=== PATIENT | female | born 1985 | race Caucasian/White ===

== ENCOUNTER → 2017-03-03 | Outpatient (CLI) | payer OTHER ==
[2017-03-03 12:20] LABS: BETA HCG QUANT 35664 MIU/ML (0-5)
== END ==
LOC: CLAB 11:17
PROVIDERS: ATTEND Obstetrics & Gynecology
DX: O26.21 Pregnancy care for patient with recurrent pregnancy loss, first trimester (principal)
CPT/HCPCS: 84144; 84702

== ENCOUNTER → 2017-05-05 | Outpatient (CLI) | payer OTHER | LOC: CLAB 10:07 | PROVIDERS: ATTEND Obstetrics & Gynecology | DX: O99.211 Obesity complicating pregnancy, first trimester (principal) | CPT/HCPCS: 36415; 82951 ==

== ENCOUNTER → 2017-05-26 | Outpatient (CLI) | payer OTHER | LOC: HPND 09:18 | PROVIDERS: ATTEND Obstetrics & Gynecology | DX: O99.212 Obesity complicating pregnancy, second trimester (principal) | CPT/HCPCS: 76811 ==

== ENCOUNTER → 2017-06-30 | Outpatient (CLI) | payer OTHER | LOC: HPND 07:32 | PROVIDERS: ATTEND Obstetrics & Gynecology | DX: O99.212 Obesity complicating pregnancy, second trimester (principal); O35.1XX0 Maternal care for (suspected) chromosomal abnormality in fetus, not applicable or unspecified | CPT/HCPCS: 76816; 76825; 76827; 93325 ==

== ENCOUNTER → 2017-07-09 | Outpatient (CLI) | payer OTHER | LOC: CLAB 07:26 | PROVIDERS: ATTEND Obstetrics & Gynecology | DX: R74.0 Nonspecific elevation of levels of transaminase and lactic acid dehydrogenase [LDH] (principal); Z33.1 Pregnant state, incidental | CPT/HCPCS: 36415; 82951 ==

== ENCOUNTER → 2017-08-05 | Outpatient (CLI) | payer OTHER | LOC: HPND 07:36 | PROVIDERS: ATTEND Obstetrics & Gynecology | DX: O35.1XX0 Maternal care for (suspected) chromosomal abnormality in fetus, not applicable or unspecified (principal); O28.3 Abnormal ultrasonic finding on antenatal screening of mother; O99.213 Obesity complicating pregnancy, third trimester; E66.01 Morbid (severe) obesity due to excess calories; Z68.43 Body mass index [BMI] 50.0-59.9, adult; Z3A.28 28 weeks gestation of pregnancy | CPT/HCPCS: 76816 ==

== ENCOUNTER → 2017-09-02 | Outpatient (CLI) | payer OTHER | LOC: HPND 07:40 | PROVIDERS: ATTEND Obstetrics & Gynecology | DX: O35.1XX0 Maternal care for (suspected) chromosomal abnormality in fetus, not applicable or unspecified (principal); O26.843 Uterine size-date discrepancy, third trimester; O99.213 Obesity complicating pregnancy, third trimester; Z68.43 Body mass index [BMI] 50.0-59.9, adult | CPT/HCPCS: 76816 ==

== ENCOUNTER 2017-10-24 07:03 | Inpatient (IN) | payer OTHER ==
--- NOTE | 2017-10-23 12:55 | MH ---
cc: ARA FLAHERTY DATE OF ADMISSION: 10/24/2017 DATE OF 1985 ADMISSION DIAGNOSIS 1. Term 2. <<0:19>> macrosomia 3. Maternal morbid obesity 4. Narrow pelvic arch HISTORY OF PRESENT ILLNESS The patient 32-year-old white female para 0 with EDC of 10/26/17 by early ultrasound at 6 weeks gestation. Her history is complicated by maternal morbid obesity with a starting BMI of 50.1 with height 5'1" and starting weight of 264 pounds. She has a narrow pelvic arch. Ultrasounds have showed macrosomia with EFW over 4200 grams with no descent. She is now admitted for primary . PAST MEDICAL HISTORY Previous surgery in 2008 appendectomy. ALLERGIES Allergies are none TRANSFUSIONS None. MEDICATIONS Vitamins. SOCIAL HISTORY She works in [employer]. alcohol, tobacco and drugs are none. FAMILY HISTORY: Her family history noncontributory. PHYSICAL EXAMINATION: IN GENERAL: Exam is a gravid white female in no distress. Her blood pressure is normal. Her weight is 296 pounds. Her height is 5'1". HEAD, EYES, EARS, NOSE, AND THROAT: normal. CHEST: Her chest is clear. HEART: Regular rate. ABDOMEN: Large pendiculous, EFW is 4200 mg. Cervix long, thick and closed, vertex was blotable, cervix normal. RADIOLOGIC: Ultrasounds. Show normal fluid and placenta is posterior. ASSESSMENT AND PLAN: She is now admitted for primary on the office in the procedures, the risks and benefits complications include infection, injury, bleeding and difficulties encountered with obesity, macrosomia and hazards to delivery by either route. The patient would like to proceed. MD KALEIGH Arteaga/gladys /11:28 AM /11:52 AM
[~2017-10-24] VITALS: Ht 157.5 cm; Wt 134.0 kg
[2017-10-24] VITALS (9 sets, daily range): BP systolic 114–137; BP diastolic 66–84; PULSE 84–99; RESP 17–19; TEMP 97.6–98.4; O2SAT 99–100
[2017-10-24 07:47] LABS: AUTOMATED NEUTROPHIL # 7.9 TH/MM3 (1.8-7.7); BASOPHIL % 0.4 % (0.0-2.0); EOSINOPHIL # 0.1 TH/MM3 (0-0.4); EOSINOPHIL % 0.9 % (0.0-4.0); HEMATOCRIT 33.6 % (35.0-46.0); HEMO FLAGS DIFF FINAL; LYMPH % 23.1 % (9.0-44.0); LYMPHOCYTE # 2.7 TH/MM3 (1.0-4.8); MEAN CELL VOLUME 72.9 FL (80.0-100.0); MEAN CORPUSCULAR HEMOGLOBIN 22.8 PG (27.0-34.0); MEAN CORPUSCULAR HGB CONC 31.3 % (32.0-36.0); MONO % 7.5 % (0.0-8.0); NEUT % 68.1 % (16.0-70.0); PLATELET COUNT 292 TH/MM3 (150-450); RED BLOOD COUNT 4.61 MIL/MM3 (4.00-5.30); RED CELL DISTRIBUTION WIDTH 16.7 % (11.6-17.2); WHITE BLOOD COUNT 11.6 TH/MM3 (4.0-11.0)
[2017-10-24] MEDS ORDERED: PREN29TA PO (07:58)
[2017-10-24 08:00] LABS: BACTERIA, URINE MOD /hpf; BLOOD, URINE NEG (NEG); COMMENT (UR) CULTURE INDICATED; CULTURE IF INDICATED CULTURE INDICATED; GLUCOSE,URINE NEG (NEG); KETONE, URINE NEG (NEG); MUCUS URINE MANY /lpf (OCC); NITRITE,URINE NEG (NEG); SQUAMOUS EPITHELIAL CELL URINE 14 /hpf (0-5); TRANSITIONAL EPI CELLS, URINE <1 /hpf; URINE COLOR YELLOW (YELLW/STRAW)
[2017-10-24] MEDS ORDERED: ceFAZolin 2 GM PREMIX 50 ML IV SCH (08:45)
[2017-10-24] MEDS ORDERED: CITRIC ACID-SODIUM CITRATE LIQ 30 ML UDC PO SCH (08:45)
[2017-10-24] MEDS ORDERED: LACTATED RINGER'S 1000 ML IV ONE (09:00)
[2017-10-24] MEDS ORDERED: EPIDURAL-NALOXONE HCL 0.4 MG/ML AMP IV PUSH PRN (09:05)
[2017-10-24] MEDS ORDERED: EPIDURAL-DIPHENHYDRAMINE HCL 50 MG CAP PO PRN (09:05)
[2017-10-24] MEDS ORDERED: EPIDURAL-DO NOT ADMINISTER ANTICOAGULANTS PRN (09:05)
[2017-10-24] MEDS ORDERED: EPIDURAL-NO SYSTEMIC NARCOTICS PRN (09:05)
[2017-10-24] MEDS ORDERED: EPIDURAL-DIPHENHYDRAMINE HCL 50 MG/ML VIAL IV PUSH PRN (09:05)
[2017-10-24] MEDS ORDERED: LACTATED RINGER'S 1000 ML IV SCH (09:30)
[2017-10-24] MEDS ORDERED: oxyCODONE/ACETAMINOPHEN 5 MG/325 MG TAB PO PRN (10:15)
[2017-10-24] MEDS ORDERED: KETOROLAC TROMETHAMINE 30 MG/ML (IVP) VIAL IV PUSH PRN (10:15)
[2017-10-24] MEDS ORDERED: KETOROLAC TROMETHAMINE 60 MG/2 ML (IM) VIAL IM PRN (10:15)
[2017-10-24] MEDS ORDERED: ONDANSETRON HCL 4 MG/2 ML VIAL IVP PRN (10:15)
[2017-10-24] MEDS ORDERED: SIMETHICONE 80 MG CHEWABLE TAB PO PRN (10:15)
[2017-10-24] MEDS ORDERED: OXYTOCIN 30 UNITS-500ML PREMIX 500 ML ONE (10:48)
[2017-10-24] MEDS ORDERED: ACETAMINOPHEN 1000 MG/100 ML 100 ML IV ONE (10:48)
[2017-10-24] MEDS: ACETAMINOPHEN 1000 MG/100 ML VIAL IV SCH ×2 (10:53→18:36)
[2017-10-24] MEDS ORDERED: MEASLES, MUMPS, RUBELLA VACCINE 0.5 ML VIAL SQ ONE (11:00)
[2017-10-24] MEDS ORDERED: OXYTOCIN 30 UNITS-500ML PREMIX 500 ML IV ONE (11:00)
--- NOTE | 2017-10-24 11:23 | MP ---
cc: REYNOLDARA DATE OF SURGERY: 10/24/2017 PREOPERATIVE DIAGNOSIS: 1. Term 2. macrosomia. 3. Maternal morbid obesity. BMI over 50. Narrow pelvic arch. POSTOPERATIVE DIAGNOSIS: 1. Term 2. macrosomia. 3. Maternal morbid obesity. BMI over 50. Narrow pelvic arch. 4. Delivered. OPERATION: Primary low transverse section. ANESTHESIA: Spinal. SURGEON: Ara William MD. TRAINING AND DEVELOPMENT OFFICER: SOMMER Savage ESTIMATED BLOOD LOSS: 600 cc. FLUIDS: 2.2 liters crystalloid. OBJECTIVE FINDINGS Following induction of adequate spinal anesthesia, the patient was prepped with a clear drape used for appendiculous, reinforced by shoulder strap tapes to expose the lower abdominal region. The site was then prepped and draped in usual sterile fashion. The bladder had been drained by Huber catheterization. The abdomen was opened through a Pfannenstiel incision using a knife to cut down from the skin to the fascia. The fascia was opened transversely, stripped from the muscle. The rectus muscle was split in the midline and the peritoneum opened sharply without incident. The bladder flap was taken down sharply, retracted inferiorly with a [place] blade. The lower uterine segment was incised, opened transversely with a knife, extended with blunt dissection. There was clear fluid. The baby was in LOT position. The vacuum extractor applied to the occiput and used to gently lift the head through the abdominal wound. The mouth was suctioned. The cord clamped and cut. The baby passed to the team, a viable vigorous female. Apgars 8 and 9, weight 8 pounds 15 ounces. Cord blood was collected for typing, the placenta for donation. The uterine cavity was wiped clean with laps. The uterus was exteriorized and closed in two layers with running suture, the first with a running locking stitch of 0 Vicryl, the second with a running imbricating stitch of 0 Vicryl. On posterior inspection, the uterus, tubes and ovaries were normal. The uterus was now placed in the peritoneal cavity. Irrigation was performed, no bleeding was evident. The bladder flap was closed with a running stitch of 3-0 Vicryl. All laps and retractors were removed, counts were correct. The anterior peritoneum was closed with a running stitch of 2-0 Vicryl, the fascia with #1 PDS corner to midline and tied. The subcu was closed with running 3-0 Vicryl and skin with a running subcuticular stitch of 3-0 Monocryl. Dermabond applied. All counts were correct. The patient was awake and taken to the recovery room in good condition. MD KALEIGH Arteaga/VICTORINO /10:08 AM /10:17 AM
[2017-10-24] MEDS ORDERED: KETOROLAC TROMETHAMINE 30 MG/ML (IVP) VIAL IV PUSH ONE (11:45)
[2017-10-24] MEDS ORDERED: LACTATED RINGER'S 1000 ML INJ 1,000 ML IV SCH (13:04)
[2017-10-24] MEDS ORDERED: OXYTOCIN 30 UNITS-500ML PREMIX 500 ML IV PRN (18:15)
[2017-10-24] MEDS ORDERED: ZOLPIDEM TARTRATE 5 MG TAB PO PRN (21:00)
[2017-10-25] MEDS: ACETAMINOPHEN 1000 MG/100 ML VIAL IV SCH (03:00)
[2017-10-25 04:00] VITALS: BP 105/66; PULSE 87
[2017-10-25 05:52] LABS: AUTOMATED NEUTROPHIL # 8.6 TH/MM3 (1.8-7.7); BASOPHIL # 0.1 TH/MM3 (0-0.2); BASOPHIL % 0.6 % (0.0-2.0); EOSINOPHIL # 0.1 TH/MM3 (0-0.4); EOSINOPHIL % 0.7 % (0.0-4.0); HEMATOCRIT 29.1 % (35.0-46.0); HEMO FLAGS DIFF FINAL; LYMPH % 17.5 % (9.0-44.0); LYMPHOCYTE # 2.1 TH/MM3 (1.0-4.8); MEAN CELL VOLUME 72.7 FL (80.0-100.0); MEAN CORPUSCULAR HEMOGLOBIN 23.8 PG (27.0-34.0); MEAN CORPUSCULAR HGB CONC 32.7 % (32.0-36.0); MONO % 9.1 % (0.0-8.0); NEUT % 72.1 % (16.0-70.0); PLATELET COUNT 224 TH/MM3 (150-450); RED CELL DISTRIBUTION WIDTH 16.7 % (11.6-17.2); WHITE BLOOD COUNT 11.9 TH/MM3 (4.0-11.0)
[2017-10-25 06:25] LABS: BICARBONATE 23.9 MEQ/L (21.0-32.0); POTASSIUM 4.2 MEQ/L (3.5-5.1)
[2017-10-25] MEDS: IBUPROFEN 600 MG TAB PO PRN (13:15)
[2017-10-25] MEDS: oxyCODONE/ACETAMINOPHEN 5 MG/325 MG TAB PO PRN (18:24)
[2017-10-26] MEDS: DOCUSATE SODIUM 50 MG/SENNA 8.6 MG TAB PO PRN ×2 (00:21→12:18)
[2017-10-26] MEDS: IBUPROFEN 600 MG TAB PO PRN ×2 (00:22→12:18)
[2017-10-26] MEDS: oxyCODONE/ACETAMINOPHEN 5 MG/325 MG TAB PO PRN ×2 (00:22→12:18)
[2017-10-26] MEDS ORDERED: OXYC1TAB63 PO (08:49)
--- NOTE | 2017-10-26 08:49 | HHI.DCPOC ---
Discharge Care Plan Report Symptoms to Your Doctor -Temperature above 100.5 degrees -Redness, of incision or excessive or foul smelling drainage -Unusual pain or calf pain -Increased vaginal bleeding -Painful or difficulty urinating -Feelings of extreme sadness or anxiety after 2 weeks Goals to Promote Your Health * To prevent worsening of your condition and complications * To maintain your health at the optimal level Directions to Meet Your Goals Take your medications as prescribed Follow your dietary instruction Follow activity as directed Ensure plenty of rest for recovery Drink fluids for hydration Keep your appointments as scheduled Take your immunizations and boosters as scheduled If your symptoms worsen call your PCP, if no PCP go to Urgent Care Center or Emergency Room Smoking is Dangerous to Your Health. Avoid second hand smoke Call the 24-hour crisis hotline for domestic abuse at Dario William MD Oct 26, 2017 08:49
[2017-10-26] MEDS ORDERED: DIPHTH/TETANUS/ACEL PERTUSSIS (BOOSTER) 0.5 ML VIAL/PFS IM ONE (09:00)
[2017-10-26] MEDS ORDERED: INFLUENZA VIRUS VACCINE (QUADRIVALENT) 0.5 ML SYR IM ONE (10:00)
--- NOTE | 2017-10-26 22:36 | MD ---
cc: ARA FLAHERTY MD ADMISSION DATE: 10/24/2017 DISCHARGE DATE: 10/26/2017 ADMISSION DIAGNOSES 1. Term 2. macrosomia 3. Maternal morbid obesity 4. Narrow pelvic arch. DISCHARGE DIAGNOSES 1. Term 2. macrosomia 3. Maternal morbid obesity 4. Narrow pelvic arch. 5. Delivered. PROCEDURE Primary low transverse section on 10/24/2017. HISTORY OF PRESENT ILLNESS A 32-year-old , white female para 0 with EDC of 10/26/2017 by early ultrasound. The patient suffers from morbid obesity, BMI was 50.1 at registration for . She is now 5 feet 1 at 296 pounds. Baby is felt to be in the range of 9 pounds with a narrow pelvic arch. She was admitted for primary on 10/24/2017. A viable vigorous female, Apgars 8 and 9, weight 8 pounds 15 ounces. did well, discharged home on excellent condition on 10/26/2017. Advised NPV, light activity, no driving. Return to see me in one week. She will call for abnormal pain, bleeding, temperature, signs of infection or depression. She is to keep the wound dry. She is to take Percocet 5 one to two p.o. q.4h as needed for pain, #60 and [id number] Motrin. Ara Flaherty MD JAW/KK /8:51 AM /10:14 PM
== END 2017-10-26 18:12 | disposition home or self-care (01) | DRG 765 ==
LOC: H2EB 07:03 → H1EA 11:59
PROVIDERS: ADMIT Obstetrics & Gynecology; ATTEND Obstetrics & Gynecology
PROC: 10D00Z1 Extraction of Products of Conception, Low, Open Approach (ICD-10-PCS; principal; 2017-10-24)
DX: O36.63X0 Maternal care for excessive fetal growth, third trimester, not applicable or unspecified (principal); O33.0 Maternal care for disproportion due to deformity of maternal pelvic bones; Z68.43 Body mass index [BMI] 50.0-59.9, adult; O99.214 Obesity complicating childbirth; E66.01 Morbid (severe) obesity due to excess calories; Z37.0 Single live birth; Z3A.40 40 weeks gestation of pregnancy
CPT/HCPCS: 59025; 80048; 80307; 81001; 85025; 86703; 86850; 86900; 86901; 87086; 90715; J0131; J0690; J1200; J2590; J7120

== ENCOUNTER → 2017-12-31 | Outpatient (CLI) | payer OTHER ==
[~2017-12-31] MED LIST: OXYC1TAB63 PO; PREN29TA PO
[2017-12-31 14:08] LABS: HEMATOCRIT 36.7 % (35.0-46.0); HEMOGLOBIN 11.7 GM/DL (11.6-15.3); MEAN CELL VOLUME 70.1 FL (80.0-100.0); MEAN CORPUSCULAR HEMOGLOBIN 22.3 PG (27.0-34.0); MEAN CORPUSCULAR HGB CONC 31.8 % (32.0-36.0); PLATELET COUNT 374 TH/MM3 (150-450); RED BLOOD COUNT 5.24 MIL/MM3 (4.00-5.30); RED CELL DISTRIBUTION WIDTH 18.2 % (11.6-17.2); WHITE BLOOD COUNT 9.3 TH/MM3 (4.0-11.0)
[2017-12-31 14:33] LABS: FREE T4 1.02 NG/DL (0.76-1.46)
== END ==
LOC: CLAB 13:42
PROVIDERS: ATTEND Obstetrics & Gynecology
DX: R53.83 Other fatigue (principal)
CPT/HCPCS: 36415; 84439; 84443; 85027